=== PATIENT | female | born 1980 | race Two or more races ===

== ENCOUNTER → 2024-07-04 | Outpatient (CLI) | payer BC, MEDICAID, SELFPAY ==
[2024-07-04 13:48] LABS: Beta HCG,Quantitative 49 mIU/mL (<5.0)
== END | disposition home or self-care (01) ==
PROVIDERS: PCP Student in an Organized Health Care Education/Training Program; Referring Provider Obstetrics & Gynecology; Visit Provider Obstetrics & Gynecology
DX: Z01.89 Encounter for other specified special examinations (principal)
CPT/HCPCS: 36415; 84702

== ENCOUNTER → 2024-07-07 | Outpatient (CLI) | payer BC, MEDICAID, SELFPAY ==
[2024-07-07 18:18] LABS: Beta HCG,Quantitative 19 mIU/mL (<5.0)
== END | disposition home or self-care (01) ==
LOC: COPL 16:34
PROVIDERS: PCP Student in an Organized Health Care Education/Training Program; Referring Provider Obstetrics & Gynecology; Visit Provider Obstetrics & Gynecology
DX: Z01.89 Encounter for other specified special examinations (principal)
CPT/HCPCS: 36415; 84702

== ENCOUNTER 2024-08-18 13:05 | Outpatient (AMB) | payer BC, SELFPAY ==
[2024-08-18 13:13] VITALS: BP 120/64; PULSE 86; RESP 17; TEMP 36.4; O2SAT 99; BMI 32.0
--- NOTE | 2024-08-18 13:13 | PD.GSCLVISIT ---
Vital Signs - [facility] 08/18/24 13:13 Height 1.47 m Height Method Stated Weight 69.201 kg Weight Measurement Method Standing Scale BMI 32.0 BP 120/64 Blood Pressure Source Automatic Cuff Blood Pressure Location Right Upper Arm Position Sitting Respiration 17 Pulse 86 Pulse Source Monitor Temp 97.5 F Temp Source Temporal Artery Scan Pulse Oximetry (%) 99 Oxygen Delivery Method Room Air Med/Allergies Allergies & Medications Allergies Penicillins Allergy (Severe, Verified 08/18/24 13:16) Neli ERWIN Intake Visit Data Collection New Patient or Established: Established Patient (seen at [facility] within 3 years) Seen by Clinical Staff ONLY (RN/MA): No Reason for Visit:: fu hemorroids Pain Present Currently: No Environmental Sustainability Manager Required: No PCP or OBGYN visit in last 3 months: Yes Smoking Status Smoking Status: Never smoker Immunization / Flu Flu Vaccine in the Last 12 Months: No Flu Vaccine Exclusion Criteria: Refused by Patient Past Medical History Past Medical History NEUROLOGIC: Negative Neurological Disorders CARDIAC: Negative Cardiac Disorders or Congestive Heart Failure RESPIRATORY: Negative Chronic Obstructive Pulmonary Disease (COPD) GASTROINTESTINAL: Negative Gastrointestinal Disorders or Colorectal Cancer GENITOURINARY: Negative Genitourinary Disorders, Renal Disease or Prostate Cancer REPRODUCTIVE: Positive Previous Pregnancies; Negative Breast Cancer, Pelvic Inflammatory Disease or Testicular Cancer MUSCULOSKELETAL: Negative Bone Cancer ENDOCRINE: Negative Endocrine Disorders, Diabetes Mellitus Type 1 or Diabetes Mellitus Type 2 HEMATOLOGIC: Negative Blood Disorders OTHER HISTORY: Positive Chicken Pox (9 years old); Negative Hospitalization, Down Syndrome, Developmental Delay, Shingles, Falls, Blood Transfusions, Blood Transfusion Reaction, Anesthesia Reactions, Organ Transplant, Chemotherapy, Radiation Therapy, Hyperbaric Therapy, MRSA, VRSA, Vancomycin-Resistant Enterococci, Breast Cancer, Cervical Cancer, Colorectal Cancer, Lung Cancer, Ovarian Cancer, Prostate Cancer or Testicular Cancer Family History FAMILY HISTORY: Positive Family Surgery (cholecystectomy, kidney stone, hemorrhoidectomy); Negative Family Psychiatric Problems, Family Respiratory Disorders, Family Cardiac Disorders, Family Gastrointestinal Problems, Family Cancer or Family Anesthesia Reaction Surgical History SURGICAL: Negative Cardiac Surgery, Endocrine Surgery, Ear Surgery, Abdominal Surgery, Nephrectomy, Joint Replacement, Neurologic Surgery, Mastectomy, Section or Organ Transplant Social History SMOKING STATUS: Smoking status: Never smoker ALCOHOL: Alcohol Intake: Current ALCOHOL FREQUENCY: Alcohol Intake Frequency: holidays/special occasions only HOUSING: Housing: House LIVES WITH: Lives With: Children and Spouse HPI HPI Narrative 43F with Celiac here for follow up of hemorrhoids. Pt states that since last year she has adopted a gluten free diet and her BMs are now soft and regular, without any diarrhea, however she continues to have symptoms from her hemorrhoid. She feels there is a constant protrusion and it is uncomfortable and hard to keep the area clean. Pt denies any blood in stool, anorexia and unintentional weight loss ROS Review of Systems Systems Reviewed: All systems reviewed, normal except as documented Objective/Exam General General Appearance: alert, cooperative and well groomed Resp Respiratory exam: Absent respiratory distress Assessment & Plan Diagnosis / Problem List (1) Hemorrhoid: Status: Acute Assessment & Plan: 43F with chronic hemorrhoids refractory to conservative measures. Because pt has healthy bowel habits I recommended THD and explained risks including severe pain, difficulty urinating, infection, and hemorrhoid persistence/recurrence. Pt expressed understanding and would like to proceed September 03 Office Procedures GNS Level of Care Nursing/Assessment Patient Status: Established Patient Nursing Assessment/Reassesment: Medication Reconciliation, Update PMH in EMR and Vital Signs Coordination of Care: Complex Care and Chronic Disease 1-5, Consent,records obtained, informed consent, Education Simp Pt/Fam, Results/Orders obtained and Staff clarify orders Established Patient Charge Established Patient Point Assignment: 90 Established Patient Point Charge: EP Level 3 (80-115) Patient Portal Questionaires Social History Living Situation History Housing: House Tobacco History Smoking Status: Never smoker Alcohol History Alcohol Intake: Current Alcohol Intake Frequency: holidays/special occasions only Review of Systems Report any current symptoms Only answer those that you have currently: Past Medical History Past Medical History Have you ever been diagnosed with any of the following: Cardiology Problems Congestive Heart Failure: No Respiratory Problems Chronic Obstructive Pulmonary Disease (COPD): No Stomache/Intestinal Problems Colorectal Cancer: No Genital/Urinary Problems Renal Disease: No Prostate Cancer: No Reproductive Problems Breast Cancer: No Pelvic Inflammatory Disease: No Previous Pregnancies: Yes Testicular Cancer: No Musculoskeletal Problems Bone Cancer: No Endocrine Problems Diabetes Mellitus Type 1: No Diabetes Mellitus Type 2: No Other Problems Hospitalization: No Down Syndrome: No Developmental Delay: No Shingles: No Falls: No Blood Transfusions: No Blood Transfusion Reaction: No Anesthesia Reactions: No Organ Transplant: No Chemotherapy: No Radiation Therapy: No Hyperbaric Therapy: No MRSA: No VRSA: No Vancomycin-Resistant Enterococci: No Chicken Pox: Yes (9 years old) Cervical Cancer: No Lung Cancer: No Ovarian Cancer: No
== END 2024-08-18 13:29 | disposition home or self-care (01) ==
LOC: HODSRG 13:05
PROVIDERS: PCP Student in an Organized Health Care Education/Training Program; Referring Provider Student in an Organized Health Care Education/Training Program; Supervising Provider Surgery; Visit Provider Surgery
DX: K64.9 Unspecified hemorrhoids (principal); K90.0 Celiac disease
CPT/HCPCS: 99213; G0463

== ENCOUNTER → 2024-08-25 | Outpatient (CLI) | payer BC, SELFPAY ==
[2024-08-25 11:03] LABS: Collection Type, Urine Clean Catch
[2024-08-25 11:54] LABS: Glucose Estimated Average 105 mg/dL (80-131); Hemoglobin A1C 5.3 % Hgb (4.8-6.0)
[2024-08-25 11:58] LABS: Basophils % (Auto) 1 % (0-2.5); Eosinophils # (Auto) 0.1 Thou/mm3 (0.0-0.5); Eosinophils % (Auto) 2 % (0-10); Hematocrit 38.1 % (36.0-46.0); Hemoglobin 13.1 g/dL (12.0-16.0); Immature Granulocytes % (Auto) 0 % (0-0); Immature Granulocytes Auto 0.03 Thou/mm3 (0.00-0.00); Lymphocytes # (Auto) 3.3 Thou/mm3 (1.0-4.8); Lymphocytes % (Auto) 39 % (10-50); Mean Corpuscular HGB Conc 34.4 g/dl (31.0-37.0); Mean Corpuscular Hemoglobin 31.4 pg (25.0-35.0); Mean Corpuscular Volume 91 fL (80-100); Monocytes # (Auto) 0.6 Thou/mm3 (0.0-0.8); Monocytes % (Auto) 6 % (0-12); Neutrophils # (Auto) 4.5 Thou/mm3 (1.8-7.7); Neutrophils % (Auto) 53 % (37-80); Nucleated Red Blood Cell % 0 /100 WBC (0); Platelet Count 333 Thou/mm3 (140-440); RDW Standard Deviation 42.5 fL (36.4-46.3); Red Blood Count 4.17 Miln/mm3 (4.00-5.20); White Blood Count 8.6 Thou/mm3 (3.6-11.0)
[2024-08-25 12:04] LABS: Bacteria,Urine Rare; Bilirubin,Urine Negative (Negative); Blood,Urine Negative (Negative); Clarity,Urine Clear (Clear/Hazy); Color,Urine Lt-Yellow (Lt Yel-Yel); Glucose, Urine Negative (Negative); Ketones,Urine Negative (Negative); Leukocyte Esterase,Urine Negative (Negative); Nitrite,Urine Negative (Negative); Protein,Urine Negative (Neg - Trace); RBC,Urine 2 /hpf (0-3); Squamous Epithelial Cell,Urine 9 /hpf (0-5); Urobilinogen,Urine Negative mg/dL (0.0-1.0); WBC,Urine 1 /hpf (0-5)
[2024-08-25 12:09] LABS: Alanine Aminotransferase 27 U/L (10-49); Albumin, Serum 4.1 gm/dL (3.5-5.0); Albumin/Globulin Ratio 1.5 (1.2-2.2); Alkaline Phosphatase 69 U/L (46-116); Anion Gap 7 (7-16); Aspartate Amino Transferase 19 U/L (0-34); BUN/Creatinine Ratio 17 Ratio (12-20); Bilirubin,Total 0.6 mg/dL (0.3-1.2); Blood Urea Nitrogen 10 mg/dL (9-23); Calcium 8.9 mg/dL (8.3-10.6); Calcium (Corrected) 8.9 mg/dL (8.5-10.1); Carbon Dioxide 25.9 mMol/L (20.0-31.0); Cardiac Risk Estimate 4.6 RATIO (3.7-5.6); Chloride 107 mMol/L (98-107); Cholesterol 201 mg/dL (132-200); Creatinine (Component) 0.6 mg/dL (0.6-1.3); Free T4 (Free Thyroxine) 1.18 ng/dL (0.89-1.76); Globulin 2.7 gm/dL (2.3-3.5); Glucose 86 mg/dL (74-106); HDL Cholesterol 44 mg/dL (40-60); LDL Cholesterol,Calculated 127 mg/dL (0-130); Osmolality,Calculated 277 (275-295); Potassium 4.6 mMol/L (3.4-5.1); Sodium 140 mMol/L (136-145); Thyroid Stimulating Hormone 1.08 uIU/mL (0.55-4.78); Total Protein 6.8 gm/dL (5.7-8.2); Triglycerides 151 mg/dL (30-150); eGFR > 60 See Note
[2024-08-25 12:11] LABS: Folate 15.74 ng/mL (>5.38); Vitamin B12 > 2000 pg/mL (211-911)
[2024-08-28 19:49] LABS: Thyroglobulin Antibodies <1 IU/mL (< OR = 1)
[2024-08-29 06:38] LABS: Thyroglobulin 9.9 ng/mL; Thyroid Peroxidase Antibodies* 1 IU/mL (<9)
== END | disposition home or self-care (01) ==
LOC: COPL 10:08
PROVIDERS: PCP Student in an Organized Health Care Education/Training Program; Referring Provider Student in an Organized Health Care Education/Training Program; Visit Provider Student in an Organized Health Care Education/Training Program
DX: R53.83 Other fatigue (principal); K90.0 Celiac disease; Z83.3 Family history of diabetes mellitus
CPT/HCPCS: 36415; 80053; 80061; 81001; 82306; 82607; 82746; 83036; 84432; 84439; 84443; 85025; 86376; 86800

== ENCOUNTER 2024-09-03 12:09 | Observation (INO) | payer BC, SELFPAY ==
[2024-09-02 08:21] VITALS: BMI 31.5
[2024-09-02 09:01] LABS: Basophils % (Auto) 0 % (0-2.5); Eosinophils # (Auto) 0.1 Thou/mm3 (0.0-0.5); Eosinophils % (Auto) 1 % (0-10); Hematocrit 38.3 % (36.0-46.0); Hemoglobin 13.2 g/dL (12.0-16.0); Immature Granulocytes % (Auto) 0 % (0-0); Immature Granulocytes Auto 0.03 Thou/mm3 (0.00-0.00); Lymphocytes # (Auto) 2.4 Thou/mm3 (1.0-4.8); Lymphocytes % (Auto) 35 % (10-50); Mean Corpuscular HGB Conc 34.5 g/dl (31.0-37.0); Mean Corpuscular Hemoglobin 30.8 pg (25.0-35.0); Mean Corpuscular Volume 90 fL (80-100); Monocytes # (Auto) 0.4 Thou/mm3 (0.0-0.8); Monocytes % (Auto) 6 % (0-12); Neutrophils # (Auto) 3.9 Thou/mm3 (1.8-7.7); Neutrophils % (Auto) 57 % (37-80); Nucleated Red Blood Cell % 0 /100 WBC (0); Platelet Count 344 Thou/mm3 (140-440); RDW Standard Deviation 42.2 fL (36.4-46.3); Red Blood Count 4.28 Miln/mm3 (4.00-5.20); White Blood Count 6.9 Thou/mm3 (3.6-11.0)
[2024-09-02 09:11] LABS: Partial Thromboplastin Time 27.2 Seconds (22.0-36.0); Prothrombin Time 10.9 Seconds (9.0-12.2)
[2024-09-02 09:22] LABS: Anion Gap 7 (7-16); BUN/Creatinine Ratio 13 Ratio (12-20); Blood Urea Nitrogen 8 mg/dL (9-23); Calcium 8.9 mg/dL (8.3-10.6); Carbon Dioxide 25.4 mMol/L (20.0-31.0); Chloride 108 mMol/L (98-107); Creatinine (Component) 0.6 mg/dL (0.6-1.3); Estimated Creatinine Clearance 101.2 mL/min (>60); Glucose 93 mg/dL (74-106); Osmolality,Calculated 277 (275-295); Sodium 140 mMol/L (136-145); eGFR > 60 See Note
[2024-09-02 09:26] LABS: HCG,Qualitative Serum Negative
[2024-09-03] VITALS (14 sets, daily range): BP systolic 95–127; BP diastolic 55–87; PULSE 54–88; RESP 12–19; TEMP 36.2–36.8; O2SAT 95–100; BMI 30.4
--- NOTE | 2024-09-03 07:48 | CHAP ---
Visited with patient giving comfort, encouragement and prayer.
[2024-09-03] MEDS: RINGERS LACTATED 1000 ML 1,000 ML 20 ML IV (08:26)
--- NOTE | 2024-09-03 10:35 | PD.SUROPNT ---
Date of Procedure 09/03/24 Pre Op Diagnosis Symptomatic hemorrhoids Post Op Diagnosis Same Procedure Transanal hemorrhoidal dearterialization Findings Internal and external hemorrhoids Procedure Description After discussion of risks and benefits, patient was brought to the operating room and general anesthesia with LMA was induced. She was placed in lithotomy position with proper padding and was prepped and draped in the usual sterile fashion. After timeout a NANDINI was performed which was normal aside from hemorrhoids. Transanal hemorrhoidal dearterialization was undertaken at the 1, 3, 5, 7, 9 and 11:00 positions. Due to redundant tissue, mucopexy was also performed at the 3 and 7:00 positions. There was no bleeding at the end of the case. Left and right pudendal nerve blocks were performed as well as a local block for total of 30 cc of half percent Marcaine. An abdominal pad was placed to the area and secured with surgical underwear. Patient was returned to supine position and extubated without complication. She was brought to PACU in stable condition Pathology / specimen None Estimated Blood Loss 25 Surgeon Mihaela Callejas MD Surgical Staff Operation Date: 09/03/24 09:30 Case Staff Anesthesiologist: Ari Funes
--- NOTE | 2024-09-03 10:38 | PD.SURDS ---
Planned Discharge Date 09/03/24 DS: Providers Provider Primary care physician: Cesar Dick MD Attending Provider on Admission: Mihaela Callejas MD Attending Provider on DC: Mihaela Callejas MD Discharging Provider: Mihaela Callejas MD Diagnosis Discharge Diagnosis (1) Hemorrhoid: Status: Acute Problem List Completed Was Problem List Reviewed/Reconciled?: Yes Exam Vital Signs Temp Pulse Resp BP Pulse Ox 98.2 F 67 15 108/58 L 95 09/03/24 08:12 09/03/24 08:12 09/03/24 08:12 09/03/24 08:12 09/03/24 08:12 Constitutional Constitutional: no acute distress Routine Respiratory Exam Respiratory: Present no resp distress Discharge Plan Plan Patient Disposition: HOME (Self Care) Prescriptions/Referrals Prescriptions/Med Rec: New oxycodone-acetaminophen [Percocet] 5-325 mg tablet 1 tab PO Q6H MDD 6 tabs PRN (Reason: pain) Qty: 30 0RF Rx Instructions: Take 1 tablet every 4-6 hours as needed for severe pain ibuprofen 800 mg tablet 800 mg PO Q6H PRN (Reason: pain) Qty: 30 0RF Rx Instructions: Take every 6 hours as needed for moderate-severe pain No Action gabapentin 100 mg capsule 100 mg PO TID PRN (Reason: pain) Ubrelvy 100 mg tablet 100 mg PO Q12HR PRN (Reason: migraine headache) Referrals: Cesar Dick MD [Primary Care Provider] - Mihaela Callejas MD [Physician] - (You will receive a phone call to confirm a follow-up appointment with me in 6 weeks) Patient/Caregiver Discharge Instructions Other Discharge Activity Instructions:: Avoid constipation and diarrhea You may resume sitz baths as needed for pain, swelling and bleeding on 09/04 You may take ibuprofen as needed in between doses of Percocet for moderate to severe pain If you develop worsening pain, fever, difficulty urinating please seek care in ER Education Materials: Anesthesia: General Anesthesia, Surgery Anesthesia After, Discharge Instructions for ..., Preventing Surgical Site Infections, Taking a Sitz Bath, [facility] General [facility] Instructions- [place] Print Language: [place] Stand Alone Forms: Gwen Award Info., Patient Portal Info Letter Discharge Order Discharge Orders: Discharge (Routine); Ordered 09/03/24 Ordered By: Mihaela Callejas Results Results: Laboratory Laboratory results: results reviewed Procedures Procedures Transanal hemorrhoidal dearterialization
--- NOTE | 2024-09-03 10:40 | SUR.PHASEI ---
1040: Pt. AAOx4, vitals stable, breathing unlabored, no complaint of pain or nausea, dressing to rectum has scant amount of blood, report received from MD Funes and Serjio BARRAZA.
[2024-09-03] MEDS: fentaNYL CIT INJ 50 mCg/ML AMP 2ML 25 MCG IV ×6 (10:49→12:18)
[2024-09-03] MEDS: ACETAMINOPHEN IVPB 1,000 MG/100 ML VIAL 250 MG IV (11:14)
[2024-09-03] MEDS: TAMSULOSIN HCL 0.4 MG CAPSULE PO (11:23)
[2024-09-03] MEDS: ONDANSETRON INJ 2 MG/ML INJ 2 ML 4 MG IV (12:18)
[2024-09-03] MEDS: oxyCODONE/APAP 5/325 TABLET 1 TAB PO ×3 (13:16→21:53)
--- NOTE | 2024-09-03 13:20 | SUR.PHASEII ---
1320: Pt. AAOx4, vitals stable, breathing unlabored, no complaint of nausea, complaint of pain, gave pt. percocet pill prior to transfer to room 366, dressing to rectum has scant amount of blood, pt. on menstrual period, peripad in place, pt. tolerated sips of water well, had to straight cath pt. due to her unable to urinate, bladder scanner showed 491ml in bladder, 500ml urine drained from straight cath, pt. tolerated well, gave report to Tiny BARRAZA prior to transfer to room, pt. stated she will notifiy her mother what room she went to.
[2024-09-03] MEDS: IBUPROFEN TAB 600 MG TABLET PO (20:14)
--- NOTE | 2024-09-03 20:46 | PC.NURSE ---
Pt complaints of feeling dizzy upon getting up, BS checked and was 151, vital sign BP 123/74, HR 68, RR 19, Temp 97.6, informed pt to call for help everytime she gets up. Bedside commode proved for the pts for the mean time.
[2024-09-04] VITALS: BP 97/60; PULSE 65; RESP 15; TEMP 36.2; O2SAT 92
[2024-09-04] MEDS: IBUPROFEN TAB 600 MG TABLET PO ×2 (02:22→09:08)
[2024-09-04 04:00] VITALS: BP 109/58; PULSE 82; RESP 16; TEMP 36.6; O2SAT 98
[2024-09-04] MEDS: oxyCODONE/APAP 5/325 TABLET 1 TAB PO ×2 (06:12→15:18)
[2024-09-04 07:45] VITALS: BP 110/58; PULSE 63; RESP 18; TEMP 36.6; O2SAT 98
--- NOTE | 2024-09-04 09:45 | PC.SS ---
Shannan Rodriguez is a 43 year old female admitted for THD. SS met with patient at bedside, patient appeared to be alert and oriented, patient reports she lives at home with her children and , Meir Rodriguez who she reports is her surrogate decision maker [phone]. Prior to admission patient did not utilize any source of DME to assist with ambulation. Choice of pharmacy is [facility] PCP is Cesar Dick. At time of discharge patient will return back home. Patient's will provide transportation. Next of kin; Meir Discharge Plan Home
[2024-09-04] MEDS: DOCUSATE SOD 100 MG CAPSULE PO (10:25)
[2024-09-04 12:00] VITALS: BP 112/58; PULSE 83; RESP 17; TEMP 36.2; O2SAT 98
--- NOTE | 2024-09-04 14:17 | PD.SURPROG ---
Documentation for date of: 09/04/24 Subjective Subjective Narrative: Pt was having severe pain yesterday with difficulty urinating, but feeling better on both fronts yesterday, remaining afebrile and tolerating liquids Exam Vital Signs Temp Pulse Resp BP Pulse Ox O2 Del Method O2 Flow Rate 97.1 F 83 17 112/58 L 98 Room Air 2 09/04/24 12:00 09/04/24 12:00 09/04/24 12:00 09/04/24 12:00 09/04/24 12:00 09/04/24 12:00 09/03/24 10:50 Constitutional Constitutional: no acute distress Routine Respiratory Exam Respiratory: Present no resp distress Assessment & Plan Plan 43F with symptomatic hemorrhoids s/p THD 09/03, gradually recovering Procedures Procedures Transanal hemorrhoidal dearterialization
[2024-09-04 15:50] VITALS: BP 123/69; PULSE 77; RESP 17; TEMP 36.3; O2SAT 100
== END 2024-09-04 16:19 | disposition home or self-care (01) ==
LOC: S3NX 09-04 05:58
PROVIDERS: Anesthesiology; Admitting Provider Surgery; PCP Student in an Organized Health Care Education/Training Program; Referring Provider Surgery; Visit Provider Surgery
PROC: (CPT 46948; principal; 2024-09-03 09:15)
DX: K64.8 Other hemorrhoids (principal); K64.4 Residual hemorrhoidal skin tags
CPT/HCPCS: 46948; 36415; 80048; 84703; 85025; 85610; 85730; A4217; A4649; G0378; J0131; J1100; J2250; J2371; J2405; J2704; J3010; J3490; J7120; A9270

== ENCOUNTER 2024-09-17 11:01 | Outpatient (AMB) | payer BC, SELFPAY ==
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
[2024-09-17 11:36] VITALS: BP 124/73; PULSE 77; RESP 18; TEMP 36.7; O2SAT 99; BMI 30.4
== END 2024-09-17 12:08 | disposition home or self-care (01) ==
LOC: HODSOBC 11:01
PROVIDERS: PCP Student in an Organized Health Care Education/Training Program; Referring Provider Student in an Organized Health Care Education/Training Program; Supervising Provider Obstetrics & Gynecology; Visit Provider Obstetrics & Gynecology
DX: Z30.09 Encounter for other general counseling and advice on contraception (principal)
CPT/HCPCS: 99203; G0463

== ENCOUNTER → 2024-09-17 | Outpatient (CLI) | payer BC, SELFPAY ==
[2024-09-30 07:02] LABS: Albumin 4.7 g/dL (3.6-5.1); Luteinizing Hormone* 5.5 mIU/mL; Prolactin* 6.5 ng/mL; SHBG 25 nmol/L (17-124); Testosterone, Bioavailable 5.1 ng/dL (0.5-8.5); Testosterone, Free 2.4 pg/mL (0.2-5.0); Testosterone,Total 17 ng/dL (2-45)
== END | disposition home or self-care (01) ==
LOC: COPL 12:34
PROVIDERS: PCP Student in an Organized Health Care Education/Training Program; Referring Provider Obstetrics & Gynecology; Visit Provider Obstetrics & Gynecology
DX: N93.8 Other specified abnormal uterine and vaginal bleeding (principal)
CPT/HCPCS: 36415; 82040; 83001; 83002; 84146; 84270; 84403

== ENCOUNTER 2024-10-13 09:23 | Outpatient (AMB) | payer BC, SELFPAY ==
[2024-10-13 09:32] VITALS: BP 115/77; PULSE 74; RESP 19; TEMP 36.6; O2SAT 98; BMI 29.9
--- NOTE | 2024-10-13 09:32 | GSCOFFNT_ITS ---
Vital Signs - [facility] 10/13/24 09:32 Height 1.5 m Height Method Stated Weight 67.387 kg Weight Measurement Method Standing Scale BMI 29.9 BP 115/77 Blood Pressure Source Automatic Cuff Blood Pressure Location Left Upper Arm Position Sitting Respiration 19 Pulse 74 Pulse Source Monitor Temp 97.8 F Temp Source Temporal Artery Scan Pulse Oximetry (%) 98 Oxygen Delivery Method Room Air Med/Allergies Allergies & Medications Allergies Penicillins Allergy (Severe, Verified 10/13/24 09:33) Hives Medication Reconciliation Unobtainable 10/13/24 [History Confirmed 10/13/24] UT Intake Visit Data Collection New Patient or Established: Established Patient (seen at [facility] within 3 years) Reason for Visit:: FOLLOW UP Pain Present Currently: No Pain scale:: 0 Pain Scale Used: WilliamsonNegin/Numerical Construction Supervisor/Carpenter Required: No PCP or OBGYN visit in last 3 months: Yes Do You Feel Safe at Home: Yes Smoking Status Smoking Status: Never smoker Immunization / Flu Flu Vaccine in the Last 12 Months: No Flu Vaccine Exclusion Criteria: No Exclusion Criteria Past Medical History Past Medical History NEUROLOGIC: Positive Migraine (On Ulbrelvy and Gabapentin PRN); Negative Neurological Disorders or Seizures CARDIAC: Negative Cardiac Disorders, Congestive Heart Failure or Hypertension RESPIRATORY: Negative Chronic Obstructive Pulmonary Disease (COPD) or Asthma GASTROINTESTINAL: Positive Celiac Disease (Eats gluten-free and dairy free), Diverticulosis and Hemorrhoids; Negative Gastrointestinal Disorders, Gall Bladder Disease or Colorectal Cancer GENITOURINARY: Negative Genitourinary Disorders, Renal Disease or Prostate Cancer REPRODUCTIVE: Positive Previous Pregnancies (-0-2-2 status post vaginal delivery x 2 and miscarriage x 2); Negative Breast Cancer, Endometriosis, Fibroids, Genital Herpes, Gonorrhea, Pelvic Inflammatory Disease, Hx Polycystic Ovarian Syndrome, Syphilis, Testicular Cancer or Uterine Prolapse MUSCULOSKELETAL: Negative Bone Cancer, Arthritis or Rheumatoid Arthritis ENDOCRINE: Negative Endocrine Disorders, Diabetes Mellitus Type 1, Diabetes Mellitus Type 2, Hyperthyroidism or Hypothyroidism HEMATOLOGIC: Negative Blood Disorders or Anemia PSYCHO/SOCIAL: Positive Anxiety (no meds) OTHER HISTORY: Positive Hospitalization (For childbirth) and Chicken Pox (9 years old); Negative Down Syndrome, Developmental Delay, Shingles, Falls, Blood Transfusions, Blood Transfusion Reaction, Anesthesia Reactions, Organ Transplant, Chemotherapy, Radiation Therapy, Hyperbaric Therapy, MRSA, VRSA, Vancomycin-Resistant Enterococci, Cancer, Breast Cancer, Cervical Cancer, Colorectal Cancer, Lung Cancer, Ovarian Cancer, Prostate Cancer or Testicular Cancer Family History FAMILY HISTORY: Positive Family Surgery; Negative Family Psychiatric Problems, Family Respiratory Disorders, Family Cardiac Disorders, Family Gastrointestinal Problems, Family Cancer or Family Anesthesia Reaction Surgical History SURGICAL: Negative Cardiac Surgery, Endocrine Surgery, Ear Surgery, Abdominal Surgery, Nephrectomy, Joint Replacement, Neurologic Surgery, Mastectomy, Section or Organ Transplant Social History SMOKING STATUS: Smoking status: Never smoker ALCOHOL: Alcohol Intake: Current ALCOHOL FREQUENCY: Alcohol Intake Frequency: A Few Times a Week HOUSING: Housing: House LIVES WITH: Lives With: Spouse Travel Risk Travel Hx Recent Travel: No HPI HPI Narrative 43F referred for symptomatic hemorrhoids s/p THD 09/03/24 here for planned follow up. Pt reports she still notices protrusions around her anus, initially there was improvement but after she stopped taking pain meds and colace she felt they returned and have not abated. She continues to have episodes of blood with stools though she reports having soft BMs without any straining. Pt is using hydrocortisone suppositories and preparation H, sometimes takes sitz baths with epsom salt though not daily ROS Review of Systems Systems Reviewed: All systems reviewed, normal except as documented Objective/Exam General General Appearance: alert, cooperative and well groomed Resp Respiratory exam: Absent respiratory distress Assessment & Plan Diagnosis / Problem List (1) Hemorrhoid: Status: Acute Assessment & Plan: 43F with symptomatic hemorrhoids s/p THD 09/03 continuing to have symptoms. I encouraged her to take sitz baths up to TID if possible and continue hydrocortisone and prep H. If her symptoms persist 6 months after THD we could consider reoperation, possible THD versus excisional hemorrhoidectomy however pt is understandably reluctant as THD was quite painful. All questions were answered and pt is agreeable to this plan Office Procedures GNS Level of Care Nursing/Assessment Patient Status: Established Patient Nursing Assessment/Reassesment: Medication Reconciliation, Update PMH in EMR and Vital Signs Coordination of Care: Complex Care/Chronic Disease 5 or more, Education Complex Pt/Fam, Consent,records obtained, informed consent and Staff clarify orders Established Patient Charge Established Patient Point Assignment: 100 Established Patient Point Charge: EP Level 3 (80-115) Patient Portal Questionaires Social History Living Situation History Lives With: Spouse Housing: House 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 Tobacco History Smoking Status: Never smoker Alcohol History Alcohol Intake: Current Alcohol Intake Frequency: A Few Times a Week Domestic Abuse History Do You Feel Safe at Home: Yes Review of Systems Report any current symptoms Only answer those that you have currently: Past Medical History Past Medical History Have you ever been diagnosed with any of the following: Neurological Problems Seizures: No Migraine: Yes (On Ulbrelvy and Gabapentin PRN) Cardiology Problems Congestive Heart Failure: No Hypertension: No Respiratory Problems Chronic Obstructive Pulmonary Disease (COPD): No Asthma: No Stomache/Intestinal Problems Celiac Disease: Yes (Eats gluten-free and dairy free) Gall Bladder Disease: No Diverticulosis: Yes Colorectal Cancer: No Hemorrhoids: Yes Genital/Urinary Problems Renal Disease: No Reproductive Problems Breast Cancer: No Endometriosis: No Fibroids: No Genital Herpes: No Gonorrhea: No Pelvic Inflammatory Disease: No Polycystic Ovarian Syndrome: No Previous Pregnancies: Yes (-0-2-2 status post vaginal delivery x 2 and miscarriage x 2) Syphilis: No Uterine Prolapse: No Musculoskeletal Problems Bone Cancer: No Arthritis: No Rheumatoid Arthritis: No Endocrine Problems Diabetes Mellitus Type 1: No Diabetes Mellitus Type 2: No Hyperthyroidism: No Hypothyroidism: No Blood Problems Anemia: No Psychologic Problems Anxiety: Yes (no meds) Other Problems Hospitalization: Yes (For childbirth) Down Syndrome: No Developmental Delay: No Shingles: No Falls: No Blood Transfusions: No Blood Transfusion Reaction: No Anesthesia Reactions: No Organ Transplant: No Chemotherapy: No Radiation Therapy: No Hyperbaric Therapy: No MRSA: No VRSA: No Vancomycin-Resistant Enterococci: No Chicken Pox: Yes (9 years old) Cancer: No Cervical Cancer: No Lung Cancer: No Ovarian Cancer: No
== END 2024-10-13 09:52 | disposition home or self-care (01) ==
LOC: HODSRG 09:23
PROVIDERS: PCP Student in an Organized Health Care Education/Training Program; Referring Provider Student in an Organized Health Care Education/Training Program; Supervising Provider Surgery; Visit Provider Surgery
DX: K64.9 Unspecified hemorrhoids (principal)
CPT/HCPCS: 99213; G0463

== ENCOUNTER → 2024-11-19 | Outpatient (CLI) | payer BC, SELFPAY ==
--- NOTE | 2024-11-19 11:00 | XR_ITS ---
Examination: Pelvic ultrasound, transabdominal, complete Technique: Transabdominal ultrasound of the pelvis performed using grayscale imaging Date and time of exam: November 19, 2024 1124 hours INDICATIONS: Irregular heavy menses beginning 2 years ago FINDINGS: Uterus 8.7 cm endometrial stripe 0.9 cm No uterine mass or intrauterine gestation Right ovary 3.8 cm arterial flow 20 mm follicular cyst Left ovary 2.5 cm arterial flow 15 mm follicular cyst IMPRESSION: No uterine mass or acute uterine gestation
--- NOTE | 2024-11-19 11:30 | XR_ITS ---
Examination: Screening digital mammography, bilateral Computer aided detection 3-D breast Tomosynthesis, bilateral Date and time of exam: 03/21/2025 1134 hours No priors Indication: Screening Technique: Nonmagnified MLO, CC views of the breasts to been obtained, reconstructed from 3-D Tomosynthesis images. R2 computer aided detection program utilized for evaluation of suspicious masses and/or abnormal calcifications. 3-D Tomosynthesis images obtained. Findings: Scattered areas of fibroglandular density 12 mm focal asymmetry 12:00 position left breast anterior depth Benign calcifications Impression: BI-RADS Category 0: Incomplete: Need additional imaging evaluation Recommend follow-up spot tomographic views of 12 mm focal asymmetry 12:00 position left breast as well as left breast sonography to complete the workup.
== END | disposition home or self-care (01) ==
PROVIDERS: Referring Provider Obstetrics & Gynecology; Visit Provider Obstetrics & Gynecology
DX: Z12.31 Encounter for screening mammogram for malignant neoplasm of breast (principal); N83.02 Follicular cyst of left ovary; N83.01 Follicular cyst of right ovary; R92.323 Mammographic fibroglandular density, bilateral breasts; R92.1 Mammographic calcification found on diagnostic imaging of breast
CPT/HCPCS: 76856; 77063; 77067

== ENCOUNTER 2024-11-20 12:59 | Outpatient (AMB) | payer BC, SELFPAY ==
[2024-11-20 13:07] VITALS: BP 124/78; PULSE 94; RESP 18; TEMP 37.1; O2SAT 98; BMI 29.9
--- NOTE | 2024-11-20 13:10 | GSCOFFNT_ITS ---
Vital Signs - [facility] 11/20/24 13:07 11/20/24 13:11 Height 1.5 m Height Method Stated Weight 67.387 kg Weight Measurement Method Standing Scale BMI 29.9 BP 124/78 124/78 Blood Pressure Source Automatic Cuff Blood Pressure Location Right Upper Arm Position Sitting Respiration 18 18 Pulse 94 94 Pulse Source Monitor Temp 98.7 F 98.7 F Temp Source Temporal Artery Scan Pulse Oximetry (%) 98 98 Oxygen Delivery Method Room Air Med/Allergies Allergies & Medications Allergies Penicillins Allergy (Severe, Verified 11/20/24 13:09) Hives Medication Reconciliation hydrocortisone acetate 25 mg rectal suppository (Anusol-HC) 25 mg NM QDAY PRN hemorrhoids #100 ea 10/16/24 [Rx Confirmed 11/20/24] MA Intake Visit Data Collection New Patient or Established: Established Patient (seen at [facility] within 3 years) Reason for Visit:: FOLLOW UP HEMORRHOIDS Pain Present Currently: No Pain Location: Buttock (DISCOMFORT) Pain scale:: 2 Pain Scale Used: Williamson-Jenkins/Numerical Quill Machine Operator Required: No PCP or OBGYN visit in last 3 months: No Hx Now: No Do You Feel Safe at Home: Yes Authorities Contacted: N/A Smoking Status Smoking Status: Never smoker Immunization / Flu Flu Vaccine in the Last 12 Months: No Flu Vaccine Exclusion Criteria: No Exclusion Criteria Past Medical History Past Medical History NEUROLOGIC: Positive Migraine (On Ulbrelvy and Gabapentin PRN); Negative Neurological Disorders or Seizures CARDIAC: Negative Cardiac Disorders, Congestive Heart Failure or Hypertension RESPIRATORY: Negative Chronic Obstructive Pulmonary Disease (COPD) or Asthma GASTROINTESTINAL: Positive Celiac Disease (Eats gluten-free and dairy free), Diverticulosis and Hemorrhoids; Negative Gastrointestinal Disorders, Gall Bladder Disease or Colorectal Cancer GENITOURINARY: Negative Genitourinary Disorders, Renal Disease or Prostate Cancer REPRODUCTIVE: Positive Previous Pregnancies (-0-2-2 status post vaginal delivery x 2 and miscarriage x 2); Negative Breast Cancer, Endometriosis, Fibroids, Genital Herpes, Gonorrhea, Pelvic Inflammatory Disease, Hx Polycystic Ovarian Syndrome, Syphilis, Testicular Cancer or Uterine Prolapse MUSCULOSKELETAL: Negative Bone Cancer, Arthritis or Rheumatoid Arthritis ENDOCRINE: Negative Endocrine Disorders, Diabetes Mellitus Type 1, Diabetes Mellitus Type 2, Hyperthyroidism or Hypothyroidism HEMATOLOGIC: Negative Blood Disorders or Anemia PSYCHO/SOCIAL: Positive Anxiety (no meds) OTHER HISTORY: Positive Hospitalization (For childbirth) and Chicken Pox (9 years old); Negative Down Syndrome, Developmental Delay, Shingles, Falls, Blood Transfusions, Blood Transfusion Reaction, Anesthesia Reactions, Organ Transplant, Chemotherapy, Radiation Therapy, Hyperbaric Therapy, MRSA, VRSA, Vancomycin-Resistant Enterococci, Cancer, Breast Cancer, Cervical Cancer, Colorectal Cancer, Lung Cancer, Ovarian Cancer, Prostate Cancer or Testicular Cancer Family History FAMILY HISTORY: Positive Family Surgery; Negative Family Psychiatric Problems, Family Respiratory Disorders, Family Cardiac Disorders, Family Gastrointestinal Problems, Family Cancer or Family Anesthesia Reaction Surgical History SURGICAL: Negative Cardiac Surgery, Endocrine Surgery, Ear Surgery, Abdominal Surgery, Nephrectomy, Joint Replacement, Neurologic Surgery, Mastectomy, Section or Organ Transplant Social History SMOKING STATUS: Smoking status: Never smoker SUBSTANCE USE: Substance use type: does not use ALCOHOL: Alcohol Intake: Current ALCOHOL FREQUENCY: Alcohol Intake Frequency: A Few Times a Week HOUSING: Housing: House LIVES WITH: Lives With: Spouse Travel Risk Travel Hx Recent Travel: No HPI HPI Narrative 43F referred for symptomatic hemorrhoids s/p THD 09/03/24 here for planned follow up. Pt states she has been using preparation H and suppositories daily, and they tend to help with her symptoms however she has noticed if she skips the suppository for even a day the symptoms worsen with increased bulging around the anus, discomfort and sometimes bleeding. She had a viral illness recently associated with diarrhea which also exacerbated her symptoms. Pt drinks plenty of water, takes miralax sometimes, has not tried fiber supplementation but states that she generally does not have to strain. She is also doing sitz baths up to BID as possible. Overall pt feels the hemorrhoids have increased in size since surgery and she is understandably disappointed ROS Review of Systems Systems Reviewed: All systems reviewed, normal except as documented Objective/Exam General General Appearance: alert, cooperative and well groomed Resp Respiratory exam: Absent respiratory distress Assessment & Plan Diagnosis / Problem List (1) Hemorrhoid: Status: Acute Assessment & Plan: 43F referred for symptomatic hemorrhoids s/p THD 09/03/24 here for planned follow up, with persistent and at times worsened symptoms postoperatively using suppositories, prep H and sitz baths regularly. Pt is clear she does not want to pursue a second surgery right away as THD was quite painful but she is thinking that if the symptoms persist she would consider another surgery. In the interim she would like to start fiber supplementation and is considering Pranicura which another pt mentioned to me was very helpful. Pt has some interest in excisional hemorrhoidectomy which is reasonable as THD did not provide her any benefit. Pt would like to contact the office when she is ready to discuss further; I encouraged her to contact us with any concerns or need for refills in the meantime Office Procedures GNS Level of Care Nursing/Assessment Patient Status: Established Patient Nursing Assessment/Reassesment: Medication Reconciliation, Update PMH in EMR and Vital Signs Coordination of Care: Complex Care and Chronic Disease 1-5, Education Complex Pt/Fam, Consent,records obtained, informed consent, Results/Orders obtained and Staff clarify orders Established Patient Charge Established Patient Point Assignment: 95 Established Patient Point Charge: EP Level 3 (80-115) Patient Portal Questionaires Social History Living Situation History Lives With: Spouse Housing: House 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 Tobacco History Smoking Status: Never smoker Alcohol History Alcohol Intake: Current Alcohol Intake Frequency: A Few Times a Week Domestic Abuse History Do You Feel Safe at Home: Yes Review of Systems Report any current symptoms Only answer those that you have currently: Past Medical History Past Medical History Have you ever been diagnosed with any of the following: Neurological Problems Seizures: No Migraine: Yes (On Ulbrelvy and Gabapentin PRN) Cardiology Problems Congestive Heart Failure: No Hypertension: No Respiratory Problems Chronic Obstructive Pulmonary Disease (COPD): No Asthma: No Stomache/Intestinal Problems Celiac Disease: Yes (Eats gluten-free and dairy free) Gall Bladder Disease: No Diverticulosis: Yes Colorectal Cancer: No Hemorrhoids: Yes Genital/Urinary Problems Renal Disease: No Reproductive Problems Breast Cancer: No Endometriosis: No Fibroids: No Genital Herpes: No Gonorrhea: No Pelvic Inflammatory Disease: No Polycystic Ovarian Syndrome: No Previous Pregnancies: Yes (-0-2-2 status post vaginal delivery x 2 and miscarriage x 2) Syphilis: No Uterine Prolapse: No Musculoskeletal Problems Bone Cancer: No Arthritis: No Rheumatoid Arthritis: No Endocrine Problems Diabetes Mellitus Type 1: No Diabetes Mellitus Type 2: No Hyperthyroidism: No Hypothyroidism: No Blood Problems Anemia: No Psychologic Problems Anxiety: Yes (no meds) Other Problems Hospitalization: Yes (For childbirth) Down Syndrome: No Developmental Delay: No Shingles: No Falls: No Blood Transfusions: No Blood Transfusion Reaction: No Anesthesia Reactions: No Organ Transplant: No Chemotherapy: No Radiation Therapy: No Hyperbaric Therapy: No MRSA: No VRSA: No Vancomycin-Resistant Enterococci: No Chicken Pox: Yes (9 years old) Cancer: No Cervical Cancer: No Lung Cancer: No Ovarian Cancer: No
[2024-11-20 13:11] VITALS: BP 124/78; PULSE 94; RESP 18; TEMP 37.1; O2SAT 98
== END 2024-11-20 13:30 | disposition home or self-care (01) ==
LOC: HODSRG 12:59
PROVIDERS: PCP Student in an Organized Health Care Education/Training Program; Referring Provider Student in an Organized Health Care Education/Training Program; Supervising Provider Surgery; Visit Provider Surgery
DX: K64.9 Unspecified hemorrhoids (principal)
CPT/HCPCS: 99213; G0463

== ENCOUNTER 2024-11-27 15:34 | Outpatient (AMB) | payer BC, SELFPAY ==
--- NOTE | 2024-11-27 15:36 | AMB.GYNCLNOT ---
Allergies/Home Meds Allergies & Medications Allergies Penicillins Allergy (Severe, Verified 11/27/24 15:36) Hives Medication Reconciliation hydrocortisone acetate 25 mg rectal suppository (Anusol-HC) 25 mg VT QDAY PRN hemorrhoids #100 ea 10/16/24 [Rx Confirmed 11/27/24] Intake Visit Data Collection New Patient or Established: Established Patient (seen at [facility] within 3 years) Reason for Visit:: US RESULT / LAB RESULTS Seen by Clinical Staff ONLY (RN/MA): No Research Associate Policy Required: No Do You Feel Safe at Home: Yes Authorities Contacted: N/A PCP or OBGYN visit in last 3 months: Yes Date of Last PCP or OBGYN visit: 11/20/24 Hx Now: No Are you currently on any form of Control: No Pain Present Currently: No Pain Scale Used: Williamson-Jenkins/Numerical Pain scale:: 0 Smoking Status Smoking Status: Never smoker For Telemed visit only Telemed Video/Phone Visit: Yes Verbal consent obtained for Telemed visit?: Yes Verbal Consent witness name: TANA BLAND Telemed Video/Phone visit w/Clinical Staff: 21-30 min 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 History Menstrual regularity: irregular Flow: light Monthly: No Menopausal: No Currently sexually active: Yes 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: Past Medical History Past Medical History: No Hx Neurological Disorders, No Hx Hypothyroidism, No Hx Hyperthyroidism, No Hx Breast Cancer, No Hx Cardiac Disorders, No Hx Hypertension, No Hx Cancer, No Hx Blood Disorders, No Hx Anemia, No Hx Gastrointestinal Disorders, No Hx Renal Disease, No Hx Diabetes Mellitus Type 1, No Hx Diabetes Mellitus Type 2 and No Hx Polycystic Ovarian Syndrome Questionnaires Covid-19 Vaccine Questionnaire Has patient been vacinated for Covid-19 Have you been vacinated for Covid-19: No PHQ-9 PHQ-2 Over the last 2 weeks, how often have you been bothered by any of the following problems? 1. Little interest or pleasure in doing things: not at all 2. Feeling down, depressed, or hopeless: not at all Total score: 0 PHQ-9 3. Trouble falling or staying asleep, or sleeping too much: Not at all 4. Feeling tired or having little energy: Not at all 5. Poor appetite or overeating: Not at all 6. Feeling bad about yourself - or that you are a failure or have let yourself or your family down: Not at all 7. Trouble concentrating on things, such as reading the newspaper or watching television: Not at all 8. Moving or speaking so slowly that other people could have noticed? - Or the opposite - being so fidgety or restless that you have been moving around a lot more than usual: not at all 9. Thoughts that you would be better off or of hurting yourself in some way: Not at all Total score: 0 If you checked off any problems, how difficult have these problems made it for you to do your work, take care of things at home, or get along with other people?: not difficult at all Source: Developed by Drs. Isacc Downing, Juanita Nails, Phill Woods and colleagues, with an educational ladonna from [employer]. 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 I saw the patient in August to discuss control. At that time she was leaning towards a tubal ligation but once she found out she would have to go to sleep she scheduled her for a vasectomy. He just recently had his vasectomy. She has a 14-year-old son and 7-year-old daughter. She states her cycles are quite irregular, anywhere between 33 and 60 days apart. She denies hot flashes night sweats vaginal dryness. She wants to know why her cycles are irregular. She had labs performed at the end of August that are on the chart including a normal hemoglobin normal hematocrit normal white count normal platelets normal electrolyte panel normal BUN normal creatinine normal glucose. She had a normal thyroid 08/25/24 ordered by her primary care. FSH is normal at 3.9 LH 5.5. Prolactin normal 6.5 total and free testosterone normal hCG negative. I did not check an estradiol but patient is not having hot flashes or night sweats. Patient states she has lost weight and she went down a couple of sizes recently because she was diagnosed with celiac disease and is eating quite healthy. She has a GI doctor. She has done screening for colon cancer. We also reviewed an ultrasound dated November 19 revealing the uterus to be 8.7 cm with a 0.9 cm stripe right and left ovary were both normal she had a small cyst on the right ovary that was 2 cm and one of the left ovary that was 1.5 cm. She did have a mammogram and we did review this also this was dated 11/19/2024 patient had fibroglandular density in her left breast at 12:00 had a focal asymmetry that was 1.2 cm the recommendation is a follow-up spot view and ultrasound of the left breast. Patient is aware she needs to schedule this. Review of Systems Review of Systems Narrative Review of Systems: No hot flashes no night sweats no vaginal dryness. No new acne or facial hair growth. Patient has irregular cycles anywhere between 33 to 60 days apart. No pelvic pain no painful intercourse. Office Procedures OB Clinic LOC & Office Proc's Nursing/Assessment Patient Status: Established Patient OB Clinic Nursing Assessment: Medication Reconciliation, Update PMH in EMR and Vital Signs OB Clinic Coordination of Care: Complex Care and Chronic Disease 1-5, Consent,records obtained, informed consent, Results/Orders obtained and Staff clarify orders Established Patient Charge Established Patient Point Assignment: 75 Telehealth If patient is seen using Teleconference methods, complete New/Est section, but DO NOT jenn points only jenn the correct Telemed visit type Telemed Phone/Video with patient at home & Dr,PA,HYDRAULIC TECHNICIAN: Yes Assessment & Plan Diagnosis / Problem List (1) DUB (dysfunctional uterine bleeding): Status: Acute Assessment and Plan: At this point patient has dysfunctional uterine bleeding. It is most likely not a thyroid problem or due to polycystic ovarian syndrome. It could be due to her recent weight loss. I told the patient I am not sure why she is having abnormal periods. I would recommend low-dose control or an IUD for cycle control. Patient declines both. I told her she is likely not perimenopausal as she is not having a significant amount of hot flashes night sweats and other perimenopausal send symptoms. Pelvic ultrasound is normal. I recommended she withdraw at least every 4 months. If her cycles are spacing out more than that she needs to call. The patient states she was hoping she could get an annual exam. She will have to schedule this for December. The patient will also need additional views of her mammogram and ultrasound of left breast ordered. All questions were answered to the patient's satisfaction. She should still use condoms until her goes back for his postvasectomy sperm check. Additional Plan Follow Up: 1 Month (Patient will need an annual exam)
== END 2024-11-27 16:21 | disposition home or self-care (01) ==
PROVIDERS: Supervising Provider Obstetrics & Gynecology; Visit Provider Obstetrics & Gynecology
DX: N93.8 Other specified abnormal uterine and vaginal bleeding (principal)
CPT/HCPCS: 99212; G0463

== ENCOUNTER → 2024-12-24 | Outpatient (CLI) | payer BC, SELFPAY ==
--- NOTE | 2024-12-24 16:00 | XR_ITS ---
Examination: Breast ultrasound, unilateral, left completely Date and time of exam: December 24, 2024 1614 hours INDICATIONS: Mammogram November 19, 2024 12 mm focal asymmetry 12:00 position left breast. Technique: Real-time casillas scale ultrasonographic imaging performed left breast including all 4 quadrants as well as nipple retroareolar and axillary region. Findings: No cystic or solid mass IMPRESSION: BI-RADS Category 1: Negative study.
== END | disposition home or self-care (01) ==
LOC: CDIM 15:51
PROVIDERS: Referring Provider Obstetrics & Gynecology; Visit Provider Obstetrics & Gynecology
DX: R92.30 Dense breasts, unspecified (principal)
CPT/HCPCS: 76641

== ENCOUNTER 2025-01-07 12:02 | Outpatient (AMB) | payer BC, SELFPAY ==
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
== END 2025-01-07 13:55 | disposition home or self-care (01) ==
LOC: HODSOBC 12:02
PROVIDERS: Supervising Provider Obstetrics & Gynecology; Visit Provider Obstetrics & Gynecology
DX: R92.8 Other abnormal and inconclusive findings on diagnostic imaging of breast (principal); Z88.0 Allergy status to penicillin
CPT/HCPCS: 99212; G0463

== ENCOUNTER → 2025-03-27 | Outpatient (CLI) | payer BC, SELFPAY ==
[2025-03-27 14:10] LABS: Urea Breath Test Positive (Negative)
[2025-03-27 15:54] LABS: Campylobacter PCR Negative (Negative); Salmonella Species PCR Negative (Negative); Shiga Toxin PCR Negative (Negative); Shigella Species PCR Negative (Negative)
[2025-03-31 23:34] LABS: Source STOOL
== END | disposition home or self-care (01) ==
LOC: COPL 09:11
DX: R10.13 Epigastric pain (principal)
CPT/HCPCS: 83013; 83014; 87177; 87209